=== PATIENT | female | born 1965 | race American Indian/Alaskan Native ===

== ENCOUNTER 2021-07-27 08:12 | Outpatient (CLI) | payer MEDICARE ==
--- NOTE | 2021-07-27 11:07 | Vascular Lab Report ---
Renal arterial Ultrasound HISTORY: HYPERTENSIVE CHRONIC KIDNEY DISEASE. TECHNIQUE: Grayscale and color imaging performed. COMPARISON: None FINDINGS: The aorta is normal in size and tapers distally. Maximal peak systolic velocity in the aort a is in the proximal segment measuring 90 cm/s. Peak systolic velocity in the proximal SMA is 218 cm/ s and in the celiac axis is 142 cm/s. On the right, maximal peak systolic velocity in the renal artery is in the mid segment measuring 95 c m/s. Right kidney measures 7.7 cm in length and appears to be diffusely echogenic with thinning of th e cortex measuring 5 mm. Intrarenal resistive indices range from 0.62-0.76. Renal artery to aortic ra aly is less than 3.5. On the left, maximal peak systolic velocity in the renal artery is in the distal segment measuring 80 cm/s. Left kidney measures 9.8 cm in length and appears diffusely echogenic with parenchymal thinnin g measuring 7 mm. Intrarenal resistive indices range from 0.58-0.75. Simple cysts are noted. Renal ar lacy to aortic ratio is less than 3.5. IMPRESSION: 1. No ultrasound evidence of renal artery stenosis. 2. Bilateral echogenic kidneys and parenchymal thinning, nonspecific but often seen with medical min l disease. 3. Simple left renal cysts. Signer Name: Philip Morillo MD Signed: 07/27/2021 11:02 AM Workstation Name: [id number]
== END 2021-07-27 08:13 | disposition home or self-care (01) ==
LOC: VAS 08:12
PROVIDERS: ATTEND Internal Medicine Nephrology
DX: N28.1 Cyst of kidney, acquired (principal); I12.9 Hypertensive chronic kidney disease with stage 1 through stage 4 chronic kidney disease, or unspecified chronic kidney disease; N18.9 Chronic kidney disease, unspecified
CPT/HCPCS: 93975